=== PATIENT | female | born 1965 | race Caucasian/White ===

== ENCOUNTER 2020-05-16 08:42 | Emergency (ER) | payer OTHER, BC ==
[~2020-05-16] VITALS: Ht 182.9 cm; Wt 80.3 kg
[~2020-05-16 08:42] MED LIST: ALPRAZOLAM0.5 M1 PO; BIOTIN1 MG PO; KETAMINE IJ; LAMICTAL100 MG; LITHIUM CARBON450 MG PO
[2020-05-16] MEDS ORDERED: DIFLUCAN150 MG PO (09:11)
[2020-05-16] MEDS ORDERED: AUGMENTIN 875-1 EACH PO (09:11)
== END 2020-05-16 09:27 | disposition home or self-care (01) ==
LOC: ED 08:42
DX: S61.552A Open bite of left wrist, initial encounter (principal); S61.551A Open bite of right wrist, initial encounter; S61.255A Open bite of left ring finger without damage to nail, initial encounter; W55.01XA Bitten by cat, initial encounter; Z88.5 Allergy status to narcotic agent; Z79.899 Other long term (current) drug therapy
CPT/HCPCS: 90471; 90715; 99283-25

== ENCOUNTER 2021-05-05 11:00 | Day surgery (SDC) | payer BC ==
[~2021-05-05] VITALS: Ht 182.9 cm; Wt 75.4 kg
[~2021-05-05 11:00] MED LIST changes: +AUGMENTIN 875-1 EACH PO; +DIFLUCAN150 MG PO; +ESTRACE1 MG PO; -LAMICTAL100 MG; +LAMICTAL100 MG PO; +PROVERA2.5 MG PO
--- NOTE | 2021-05-05 13:46 | NUR ---
05/05/21 1346 Sheets,Krystyna 1340 PT ARRIVED TO PACU ON 6L VIA MASK, PT WAKES TO TACTILE STIMULI AND DENIES PAIN. PT REORIENTED TO PACU. VSS. 1342 O2 REMOVED. 1346 PT PASSING GAS/AIR
--- NOTE | 2021-05-06 10:08 | OR ---
[facility] [address], [place] [address] Signed DATE OF OPERATION: 05/05/2021 SURGEON: Linda Robledo MD PREOPERATIVE DIAGNOSIS: History of polyps in 2018. POSTOPERATIVE DIAGNOSIS: Polyps x3. PROCEDURES: Total colonoscopy to cecum with cold morcellation polypectomy x1, cold snare polypectomy x1, hot snare polypectomy with mucosal lift technique x1. ANESTHESIA: Intravenous sedation and propofol infusion, Adriano Linton CRNA INDICATIONS: This 55-year-old white woman is a patient now of Dr. Schwartz in [place], [place]. She has a history of colonic polyp resection by me in 2018. She is symptom-free at this time and has no family history of colon cancer. She is recommended for surveillance colonoscopy based on her previous polyps. She understands the risks of bleeding, infection, and perforation related to colonoscopy and wished to proceed. FINDINGS: Three polyps were noted. An elongated sessile polyp at 70 cm was excised with mucosal lift technique including use of spot dye. Additionally, there was a small polyp excised with cold morcellation technique at the hepatic flexure and another with cold snare technique in the right transverse colon/hepatic flexure area. Previous Endo jenna tattoo dye was noted at the hepatic flexure as well. Remaining colon was normal. DESCRIPTION OF PROCEDURE: The patient was brought to the endoscopy suite and placed in lateral decubitus position given intravenous sedation with propofol infusional technique. Digital rectal examination was normal. An Olympus video colonoscope was passed into the rectum and manipulated throughout the colon and at the hepatic flexure was noted a somewhat sessile polyp. This was excised with cold snare technique. The specimen retrieved and passed for pathology, not far from there was a previous [employer] tattoo dye and another small, but not recurrent Electronically Signed By: LINDA ROBLEDO MD 05/06/21 1008 PATIENT NAME: CHARI FRANK OPERATIVE REPORT DATE OF : 69 REPORT #: [id number] PHYSICIAN: LINDA ROBLEDO MD PCP: HERO SCHWARTZ DO REPORT IS CONFIDENTIAL AND NOT TO BE RELEASED WITHOUT AUTHORIZATION [facility] [address], [place] [address] Signed polyp. This was excised with cold morcellation technique. The scope was then advanced ultimately to the cecum. The ileocecal valve and appendiceal orifice were normal. Scope was withdrawn and examination showed no sign of abnormality until 70 cm from the anal verge, where a sessile elongated polyp was noted. This was examined by narrow band imaging technique completely consistent with adenomatous polyp. A mucosal lift technique with Endo jenna tattoo dye was used elevating the mucosa away from the submucosa and using hot snare technique in two separate segments. The polyp completely excised. The specimen was passed for pathology. The scope was further withdrawn. Remaining colon was normal. Retroflexed view was normal as well. ASSESSMENT: Three polyps, all excised. PLAN: Recommend repeat colonoscopy in three years or sooner if symptoms should develop. She will return to the ongoing care of Dr. Schwartz at this point. MD LUIS FELIPE Parker/FREDL /[id number] Copies: ~ Electronically Signed By: LINDA ROBLEDO MD 05/06/21 1008 PATIENT NAME: CHARI FRANK OPERATIVE REPORT DATE OF : 69 REPORT #: [id number] PHYSICIAN: LINDA ROBLEDO MD PCP: HERO SCHWARTZ DO REPORT IS CONFIDENTIAL AND NOT TO BE RELEASED WITHOUT AUTHORIZATION
--- NOTE | 2021-05-07 20:18 | PATH ---
[facility] [address], [place] [address] Signed SPECIMEN(S): A HEPATIC FLEXURE POLYP SPECIMEN(S): B HEPATIC FLEXURE POLYP SPECIMEN(S): C POLYP AT 70 CM SPECIMEN SOURCE: A. HEPATIC FLEXURE POLYP B. HEPATIC FLEXURE POLYP C. POLYP AT 70 CM CLINICAL HISTORY: History of polyps. Post-op: Polyps x 3. Rule out #3 sessile polyp 70 cm. Colonoscopy. FINAL PATHOLOGIC DIAGNOSIS: A. Colon, hepatic flexure, polypectomy: - Tubular adenoma. - There is no evidence of high-grade dysplasia or malignancy. B. Colon, hepatic flexure, polypectomy: - Tubular adenoma. - There is no evidence of high-grade dysplasia or malignancy. C. Colon, 70 cm, polypectomy: - Hyperplastic polyps (multiple). - There is no evidence of dysplasia or malignancy. TWK:[facility]:C2NR MICROSCOPIC EXAMINATION: Histologic sections of all submitted blocks are examined by light microscopy. These findings, together with the gross examination, support the pathologic diagnosis. GROSS DESCRIPTION: Three specimens are received in three containers, labeled "Chari Frank." A. The specimen, labeled "Chari Frank, #1," and designated on the requisition "hepatic flexure polyp," is received in formalin and consists of one ohara soft tissue fragment that measures 0.3 cm in greatest dimension. The specimen is entirely submitted in cassette (A1). B. The specimen, labeled "Chari Frank, #2," and designated on the requisition "hepatic flexure polyp," is received in formalin and consists of one ohara soft tissue fragment that measures 0.3 cm in greatest dimension. The specimen is entirely submitted in cassette (B1). C. The specimen, labeled "Chari Frank, #3," and designated on the PATIENT NAME: CHARI FRANK PATHOLOGY DATE OF : 69 REPORT #: [id number] PHYSICIAN: KATHERINE PATHOLOGY PCP: HERO SCHWARTZ DO REPORT IS CONFIDENTIAL AND NOT TO BE RELEASED WITHOUT AUTHORIZATION [facility] [address], [place] [address] Signed requisition "colon polyp at 70 cm," is received in formalin and consists of three ohara soft tissue fragments that measure 0.2-0.7 cm in greatest dimension. The largest tissue fragment is inked and bisected. The specimen is entirely submitted in cassette (C1). FB (under the direct supervision of a pathologist) The Gross Description was prepared using a voice recognition system. The report was reviewed for accuracy; however, sound-alike word errors, addition and/or deletions may occur. If there is any question about this report, please contact Client Services. PERFORMING LABORATORY: The technical component was performed by [facility], [address] [place] [id number] (Mechanical Manufacturing Technician: Veronica Willams MD; CLIA# [id number]). The professional interpretation was performed by [facility], [facility], [address] [place] [address]. Diagnostician: Joel Adamson MD Pathologist Electronically Signed 05/07/2021 Copies: ~ PATIENT NAME: CHARI FRANK PATHOLOGY DATE OF : 69 REPORT #: [id number] PHYSICIAN: KATHERINE SOUZA PCP: HERO SCHWARTZ DO REPORT IS CONFIDENTIAL AND NOT TO BE RELEASED WITHOUT AUTHORIZATION
== END 2021-05-05 14:10 | disposition home or self-care (01) ==
LOC: OPS 11:00 → DS 11:00 → OPS 12:00
PROVIDERS: ATTEND Surgery
PROC: 0DBL8ZX Excision of Transverse Colon, Via Natural or Artificial Opening Endoscopic, Diagnostic (ICD-10-PCS; 2021-05-05)
PROC: 0DBL8ZX Excision of Transverse Colon, Via Natural or Artificial Opening Endoscopic, Diagnostic (ICD-10-PCS; principal; 2021-05-05 12:00)
DX: Z12.11 Encounter for screening for malignant neoplasm of colon (principal); D12.3 Benign neoplasm of transverse colon; Z88.5 Allergy status to narcotic agent; Z88.8 Allergy status to other drugs, medicaments and biological substances
CPT/HCPCS: J2704; J7121